=== PATIENT | female | born 1930 ===

== ENCOUNTER 2018-08-31 09:10 | Inpatient (IN) | payer OTHER ==
[2018-08-31] MEDS ORDERED: COZAAR100 MG PO (09:19)
[2018-08-31] MEDS ORDERED: JANUVIA100 MG PO (09:19)
[2018-09-02] MEDS ORDERED: NORVASC5 MG (21:39)
[2018-09-02] MEDS ORDERED: PRAVASTATIN SOD40 MG (21:39)
[2018-09-02] MEDS ORDERED: GLIMEPIRIDE4 MG (21:40)
[2018-09-02] MEDS ORDERED: ANASTROZOLE1 MG (21:40)
[2018-09-02] MEDS ORDERED: LASIX20 MG (21:40)
[2018-09-02] MEDS ORDERED: [UNRECOGNIZED DRUG - OTHER] (21:51)
== END 2018-09-05 06:08 | disposition expired ==
LOC: ER 09:10 → ICU-2 15:59
PROC: 5A09557 Assistance with Respiratory Ventilation, Greater than 96 Consecutive Hours, Continuous Positive Airway Pressure (ICD-10-PCS; principal; 2018-08-31)
PROC: 4A033R1 Measurement of Arterial Saturation, Peripheral, Percutaneous Approach (ICD-10-PCS; 2018-08-31)
PROC: 3E0F7GC Introduction of Other Therapeutic Substance into Respiratory Tract, Via Natural or Artificial Opening (ICD-10-PCS; 2018-08-31)
PROC: BB24ZZZ Computerized Tomography (CT Scan) of Bilateral Lungs (ICD-10-PCS; 2018-08-31)
PROC: BW25Y0Z Computerized Tomography (CT Scan) of Chest, Abdomen and Pelvis using Other Contrast, Unenhanced and Enhanced (ICD-10-PCS; 2018-08-31)
PROC: B246ZZZ Ultrasonography of Right and Left Heart (ICD-10-PCS; 2018-09-02)
DX: I21.4 Non-ST elevation (NSTEMI) myocardial infarction (principal); J96.01 Acute respiratory failure with hypoxia; I50.23 Acute on chronic systolic (congestive) heart failure; E87.2 Acidosis; N17.8 Other acute kidney failure; J91.8 Pleural effusion in other conditions classified elsewhere; I11.0 Hypertensive heart disease with heart failure; I24.8 Other forms of acute ischemic heart disease; E78.00 Pure hypercholesterolemia, unspecified; E11.65 Type 2 diabetes mellitus with hyperglycemia; Z66 Do not resuscitate; I35.1 Nonrheumatic aortic (valve) insufficiency; I34.0 Nonrheumatic mitral (valve) insufficiency